=== PATIENT | female | born 1985 | race Caucasian/White ===

== ENCOUNTER 2020-08-07 08:00 | Outpatient (CLI) | payer OTHER ==
[2020-08-07 18:17] LABS: BASOPHILS % (AUTO) 0.4 %; EOSINOPHILS # (AUTO) 0.3 10^3/uL (0.0-0.7); HGB - HEMOGLOBIN 14.4 g/dL (12.0-16.0); LYMPHOCYTES # (AUTO) 2.1 10^3/uL (1.5-3.5); LYMPHOCYTES % (AUTO) 26.2 %; MEAN CORPUSCULAR HEMOGLOBIN 30.4 pg (27.0-31.0); MEAN CORPUSCULAR HGB CONC 33.6 g/dL (32.0-36.0); MEAN CORPUSCULAR VOLUME 90.5 fL (81.0-99.0); MONOCYTES # (AUTO) 0.6 10^3/uL (0.0-1.0); MONOCYTES % (AUTO) 6.9 %; NEUTROPHILS % (AUTO) 62.2 %; PLT - PLATELET COUNT 186 10^3/uL (130-450); RED BLOOD COUNT 4.74 10^6/uL (4.20-5.40); RED CELL DISTRIBUTION WIDTH 11.8 % (12.0-15.0)
[2020-08-07 18:54] LABS: ALBUMIN 4.3 g/dL (3.2-5.5); ALBUMIN/GLOBULIN RATIO 1.2 (1.0-2.2); ALKALINE PHOSPHATASE 68 IU/L (42-121); ALT ALANINE AMINOTRANSFERASE 35 IU/L (10-60); AST ASPARTATE AMINOTRANSFERASE 16 IU/L (10-42); BILIRUBIN,TOTAL 0.7 mg/dL (0.2-1.0); BUN - BLOOD UREA NITROGEN 15 mg/dL (6-20); CALCIUM 9.1 mg/dL (8.5-10.3); CARBON DIOXIDE - CO2 27 mmol/L (21-32); CHLORIDE 102 mmol/L (101-111); CHOL/HDL RATIO 4.2 (<4.4); CHOLESTEROL 159 mg/dL; CREATININE 0.7 mg/dL (0.4-1.0); GLUCOSE 229 mg/dL (70-100); HDL CHOLESTEROL 38 mg/dL; LDL CHOLESTEROL,CALCULATED 90 mg/dL; LDL/HDL RATIO 2.4 (<4.4); SODIUM 138 mmol/L (135-145); TOTAL PROTEIN 7.9 g/dL (6.7-8.2); VLDL CHOLESTEROL 31 mg/dL
== END 2020-08-07 23:59 | disposition home or self-care (01) ==
LOC: LAB.WCP 08:00
PROVIDERS: ATTEND Nurse Practitioner Family
DX: E11.9 Type 2 diabetes mellitus without complications (principal)
CPT/HCPCS: 36415; 80053; 80061; 83036; 83721; 84443; 85025

== ENCOUNTER 2020-08-07 21:47 | Emergency (ER) | payer OTHER ==
[2020-08-07] MEDS ORDERED: NEOMYCIN/POLYMYX/HC OTIC DROPS RIGHTEAR STA (22:22)
[2020-08-07] MEDS ORDERED: HYDROcod/ACET 5/325 Prepack 4 PO STA (22:37)
--- NOTE | 2020-08-07 22:49 | ED Physician Documentation ---
PD HPI HEENT - Stated complaint Stated Complaint: RT EAR PX/SWELLING - Chief complaint Chief Complaint: Heent - History obtained from History obtained from: Patient, Family - History of Present Illness Timing - onset: How many days ago (3) Timing - duration: Days (3) Timing - details: Gradual onset, Still present Location: Right ear Improves: Medication Worsens: Everything Associated symptoms: Facial swelling, Headache. No: Fever, Congestion, Rhinor ming, Trismus, Unable to swallow, Swollen nodes, Cough Similar symptoms before: Diagnosis (TMJ) Recently seen: Clinic - Additional information Additional information: 34-year-old female is gone in to see her doctor and was diagnosed with otitis externa and she has been placed on to Augmentin. She has not had any recent improvement in this and she is come to the emergency department for pain control. She reports that she has pain to the entire side of her face that she is having pain when she opens her jaw she felt that this it was may be her TMJ that was bothering her but she has swelling to the ear pain to touch of the ear she complains of muffled hearing and denies any cough or sore throat. Review of Systems Constitutional: denies: Fever Eyes: denies: Decreased vision Ears: reports: Ear pain, Drainage/discharge. denies: Loss of hearing Nose: denies: Rhinorrhea / runny nose, Congestion Throat: denies: Oral lesions / sores, Sore throat Cardiac: denies: Chest pain / pressure, Palpitations Respiratory: denies: Dyspnea, Cough GI: denies: Abdominal Pain, Nausea, Vomiting : denies: Dysuria PD PAST MEDICAL HISTORY - Past Medical History Past Medical History: Yes Neuro: Migraines Endocrine/Autoimmune: Type 2 diabetes Other Past Medical History: TMJ - Past Surgical History Past Surgical History: Yes /CIVIL CAD TECH: section - Present Medications Home Medications: Ambulatory Orders Medication Instructions Recorded Confirmed Ciprofloxacin HCl [Cipro] 500 mg PO BID #14 tablet 08/07/20 - Allergies Allergies/Adverse Reactions: Allergies Allergy/AdvReac Type Severity Reaction Status Date / Time No Known Drug Allergies Allergy Verified 08/07/20 21:54 - Social History Does the pt smoke?: No Smoking Status: Never smoker Does the pt drink ETOH?: No Does the pt have substance abuse?: No - Immunizations Immunizations are current?: Yes - POLST Patient has POLST: No PD ED PE NORMAL - Vitals Vital signs reviewed: Yes (hypertensive ) - General General: Alert and oriented X 3, Well developed/nourished, Other (appears to be in pain clutching the right side of her face. ) - HEENT HEENT: PERRL, EOMI, Pharynx benign, Other (The TM's are clear bilaterally the right canal is inflamed with swelling redness and tenderness. There is pain to pull on the tragus and push on the pinna. The tragus and pinna are swollen erythematous and there is extension of the swelling onto the face. 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, No motor deficit, No sensory deficit, Normal speech Eye Opening: Spontaneous Motor: Obeys Commands Verbal: Oriented GCS Score: 15 - Psych Psych: Normal mood, Normal affect Results - Vitals Vitals: Vital Signs - 24 hr 08/07/20 08/07/20 08/07/20 21:54 21:58 22:55 Temperature 36.6 C 36.6 C 36.6 C Heart Rate 86 86 85 Respiratory 16 16 16 Rate Blood Pressure 150/94 H 150/94 H 148/88 H O2 Saturation 99 99 99 Oxygen O2 Source Room air PD MEDICAL DECISION MAKING - ED course Complexity details: considered differential, d/w patient, d/w family ED course: 34-year-old female with acute right otitis externa the does appear to have some perichondritis as well. She has marked swelling to the side of her face. Here in the emergency department a Yi wick is placed and the ear is instilled with Cortisporin otic. She is instructed to remove the wick in the morning and continue to use the drops. We will change her antibiotic to Cipro as this frequently involves Pseudomonas. Departure - Departure Disposition: 01 Home, Self Care Clinical Impression: Perichondritis and chondritis of right pinna Otitis externa Qualifiers: Otitis externa type: unspecified type Chronicity: acute Laterality: right Qualified Code(s): H60.501 - Unspecified acute noninfective otitis externa, ri ght ear Condition: Stable Instructions: ED Otitis Externa Follow-Up: FIDENCIO LAWSON, MSN, [employer] OFFICER [Primary Care Provider] - Prescriptions: Ciprofloxacin HCl [Cipro] 500 mg PO BID #14 tablet Comments: Remove the wick in the right ear tomorrow and start the Cipro. You can stop the augmentin. Discharge Date/Time: 08/07/20 22:55
[2020-08-07 22:56] VITALS: BP 148/88
== END 2020-08-07 22:55 | disposition home or self-care (01) ==
LOC: ED 21:47
DX: H61.001 Unspecified perichondritis of right external ear (principal); H61.031 Chondritis of right external ear; H60.501 Unspecified acute noninfective otitis externa, right ear; E11.9 Type 2 diabetes mellitus without complications
CPT/HCPCS: 99282; 99284; A9270

== ENCOUNTER 2020-11-06 15:57 | Outpatient (CLI) | payer OTHER ==
--- NOTE | 2020-11-06 16:59 | Ultrasound Report ---
PROCEDURE: Pelvic w/Transvaginal INDICATIONS: POLYCYSTIC OVARY SYNDROME, FERTILITY PLANNING TECHNIQUE: Real-time scanning was performed of the pelvic organs, with image documentation. Additional endovagi nal scanning was necessary due to incomplete visualization of the adnexal and endometrial structures by transabdominal scanning. COMPARISON: None. FINDINGS: Transabdominal scanning: Limited scanning through the kidneys shows no hydronephrosis. No pathologi c free abdominal or pelvic fluid. Endovaginal scanning: Uterus: Uterus is normal in size at 4.3 x 5.2 x 11.2 cm. The endometrium measures 2.6 mm in combine d thickness. Ovaries: The right ovary measures 2.2 x 2.0 x 2.9 cm and the left measures 1.9 x 2.5 x 2.3 cm. IMPRESSION: The uterus and endometrial lining appears normal. A characteristic prominence of bilateral ovarian fo llicular cysts is not identified by this study. Polycystic ovarian syndrome is not suspected at this time. Reviewed by: Domenic Langford MD on 11/06/2020 4:58 PM PST Approved by: Domenic Langford MD on 11/06/2020 4:58 PM PST Station ID: [id number]
== END 2020-11-06 15:58 | disposition home or self-care (01) ==
LOC: DI 15:57
PROVIDERS: ATTEND Obstetrics & Gynecology
DX: E28.2 Polycystic ovarian syndrome (principal); N91.5 Oligomenorrhea, unspecified; N97.0 Female infertility associated with anovulation; Z31.69 Encounter for other general counseling and advice on procreation

== ENCOUNTER 2020-11-29 08:00 | Outpatient (CLI) | payer OTHER ==
[2020-11-29 18:25] LABS: CREATININE,URINE 132.7 mg/dL; MICROALBUM/CREATININE RATIO,UR 15.1 ug/mg (<30.0)
[2020-11-29 18:31] LABS: ALBUMIN 4.4 g/dL (3.2-5.5); ALBUMIN/GLOBULIN RATIO 1.2 (1.0-2.2); BILIRUBIN,TOTAL 0.7 mg/dL (0.2-1.0); CREATININE 0.5 mg/dL (0.4-1.0)
[2020-11-29 19:10] LABS: PROLACTIN 7.31 ng/mL
[2020-11-29 19:33] LABS: FOLLICLE STIMULATING HORMONE 7.94 mIU/mL
[2020-11-29 20:38] LABS: HEMOGLOBIN A1c% 7.7 % (4.27-6.07)
[2020-11-30 06:07] LABS: ESTRADIOL 28 pg/mL
== END 2020-11-29 23:59 | disposition home or self-care (01) ==
LOC: LAB.WCP 08:00
PROVIDERS: ATTEND Nurse Practitioner Family
DX: E11.9 Type 2 diabetes mellitus without complications (principal); Z71.89 Other specified counseling; N91.5 Oligomenorrhea, unspecified; N97.0 Female infertility associated with anovulation; Z13.21 Encounter for screening for nutritional disorder
CPT/HCPCS: 36415; 80048; 80053; 81599; 82043; 82306; 82570; 82670; 83001; 83036; 83498; 83520; 84144; 84146; 84403; 84443; 86762; 86787

== ENCOUNTER 2021-03-09 16:36 | Outpatient (CLI) | payer OTHER ==
[2021-03-09 20:40] LABS: CALCIUM 8.8 mg/dL (8.5-10.3); CREATININE 0.7 mg/dL (0.4-1.0); POTASSIUM 3.6 mmol/L (3.5-5.0)
[2021-03-09 20:47] LABS: ESTIMATED AVERAGE GLUCOSE 128 mg/dL (70-100); HEMOGLOBIN A1c% 6.1 % (4.27-6.07)
== END 2021-03-09 16:37 | disposition home or self-care (01) ==
LOC: LAB.N 16:36
PROVIDERS: ATTEND Nurse Practitioner Family
DX: E11.9 Type 2 diabetes mellitus without complications (principal)
CPT/HCPCS: 36415; 80048; 83036

== ENCOUNTER 2021-10-23 08:00 | Outpatient (CLI) | payer OTHER ==
[2021-10-23 18:33] LABS: BUN - BLOOD UREA NITROGEN 14 mg/dL (6-20); CALCIUM 9.4 mg/dL (8.5-10.3); CARBON DIOXIDE - CO2 28 mmol/L (21-32); CHLORIDE 100 mmol/L (101-111); CHOLESTEROL 171 mg/dL; CREATININE 0.6 mg/dL (0.4-1.0); GFR - MDRD 112 (>89); GLUCOSE 190 mg/dL (70-100); HDL CHOLESTEROL 43 mg/dL; LDL CHOLESTEROL,CALCULATED 74 mg/dL; LDL/HDL RATIO 1.7 (<4.4); SODIUM 137 mmol/L (135-145); TRIGLYCERIDES 268 mg/dL; VLDL CHOLESTEROL 54 mg/dL
[2021-10-23 19:26] LABS: ESTIMATED AVERAGE GLUCOSE 143 mg/dL (70-100); HEMOGLOBIN A1c% 6.6 % (4.27-6.07)
== END 2021-10-23 23:59 | disposition home or self-care (01) ==
LOC: LAB.WCP 08:00
PROVIDERS: ATTEND Nurse Practitioner Family
DX: E11.9 Type 2 diabetes mellitus without complications (principal); E55.9 Vitamin D deficiency, unspecified
CPT/HCPCS: 36415; 80048; 80061; 82306; 83036; 83721

== ENCOUNTER 2022-05-08 16:46 | Outpatient (CLI) | payer OTHER ==
--- NOTE | 2022-05-09 10:22 | Ultrasound Report ---
PROCEDURE: Pelvic w/Transvaginal INDICATIONS: POLYCYSTIC OVARY SYNDROME TECHNIQUE: Real-time scanning was performed of the pelvic organs, with image documentation. Additional endovagi nal scanning was necessary due to incomplete visualization of the adnexal and endometrial structures by transabdominal scanning. COMPARISON: 11/06/2020 FINDINGS: Uterus: Uterus is anteverted and normal in size at 8.9 x 4.5 x 4.6 cm. The myometrium is partially obscured by lack of good acoustic window. The visible portion is heterogeneous. No dominant mass.. T he endometrium measures 8.1 mm in combined thickness. Endometrium has a trilaminar appearance. There are a few small nabothian cysts in the cervix. Ovaries: The right ovary is best seen by transabdominal imaging, anteriorly displaced pelvis, and me asures 3.1 x 2.4 x 2.6 cm, with a calculated ovarian volume of 9.9 cc. The left ovary measures 2.2 x 2.0 x 2.2 cm, with a calculated ovarian volume of 5.0 cc. The ovaries have a normal sonographic jovita earance. There is a single dominant follicle in the right ovary measuring 1.8 cm. The left ovary has a normal echotexture with less than 12 follicles visible.. No adnexal masses are seen. Other: No pathologic free abdominal or pelvic fluid. IMPRESSION: 1. Normal size ovaries and less than 12 follicles per ovary. No sonographic finding to support PCOS i n the study. 2. Heterogeneous uterus. This finding raises the possibility of adenomyosis. Clinical correlation is recommended. This finding is stable compared to the prior study. Reviewed by: Nikki Zamora MD on 05/09/2022 10:21 AM PDT Approved by: Nikki Zamora MD on 05/09/2022 10:21 AM PDT Station ID: [id number]
== END 2022-05-08 16:47 | disposition home or self-care (01) ==
LOC: DI 16:46
PROVIDERS: ATTEND Nurse Practitioner
DX: E28.2 Polycystic ovarian syndrome (principal)

== ENCOUNTER 2022-07-22 15:30 | Outpatient (CLI) | payer OTHER ==
[2022-07-22 18:27] LABS: CREATININE,URINE 170.5 mg/dL; MICROALBUM/CREATININE RATIO,UR 94.4 ug/mg (<30.0); MICROALBUMIN,URINE 16.1 mg/dL (0-300.0)
[2022-07-22 20:26] LABS: ESTIMATED AVERAGE GLUCOSE 131 mg/dL (70-100); HEMOGLOBIN A1c% 6.2 % (4.27-6.07)
== END 2022-07-22 15:31 | disposition home or self-care (01) ==
LOC: LAB.N 15:30
PROVIDERS: ATTEND Nurse Practitioner
DX: E11.9 Type 2 diabetes mellitus without complications (principal)
CPT/HCPCS: 36415; 82043; 82570; 83036

== ENCOUNTER 2023-03-29 09:21 | Outpatient (CLI) | payer OTHER ==
[2023-03-29 19:46] LABS: ESTIMATED AVERAGE GLUCOSE 146 mg/dL (70-100); HEMOGLOBIN A1c% 6.7 % (4.27-6.07)
== END 2023-03-29 09:22 | disposition home or self-care (01) ==
LOC: LAB.N 09:21
PROVIDERS: ATTEND Nurse Practitioner
DX: E11.9 Type 2 diabetes mellitus without complications (principal)
CPT/HCPCS: 36415; 83036